=== PATIENT | female | born 1980 | race Caucasian/White ===

== ENCOUNTER 2019-08-14 03:30 | Inpatient (IN) | payer OTHER ==
[2019-08-14] MEDS: DEXTROSE 5%-LACTATED RINGERS 1,000 ML IV SCH ×3 (04:10→20:11)
[2019-08-14 04:46] VITALS: BMI 34.2
[2019-08-14] MEDS ORDERED: OXYTOCIN 30 UNITS in 0.9% NS 30 UNIT/500 ML INFUS.BAG IVPB ONE (11:02)
--- NOTE | 2019-08-14 11:05 | HP ---
Past Medical History - Admission History of Present Illness: 38 yo @ 39 6/7 wks by first trimester ultrasound, EDC 08/15/2019 complicated by: 1. Prior CD - desiring TOLAC Counseled in office regarding risks/benefits 2. H/o R dermoid cyst, s/p ovarian cystectomy 3. AMA - reassuring cell-free DNA reassuring testing Patient presents with chief complaint of leakage of clear fluid at 0200. She reports contractions began at 0300. She reports movement, denies vaginal bleeding. History Source: Patient Limitations to Obtaining History: No Limitations - Past Medical History Cardiovascular: No: HTN Pulmonary: No: Asthma Gastrointestinal: No: GERD ...: 3 ...Para: 1 ...Term: 1 ...: 0 ...Spon : 1 ...Induced : 0 ...Multiple Gestation: 0 ...LMP: 11/02/18 ... Weeks Gestation by Dates: 39.6 ...EDC by Dates: 08/15/19 Heme/Onc: No: Anemia - Past Surgical History Past Surgical History: Yes: Hx Myomectomy: No Hx Transabdominal Cerclage: No Additional Surgical History: ovarian cystectomy - Smoking History Smoking history: Never smoked Have you smoked in the past 12 months: No - Alcohol/Substance Use Hx Alcohol Use: No History of Substance Use: reports: None - Social History History of Recent Travel: No Home Medications - Allergies Allergies/Adverse Reactions: Allergies Allergy/AdvReac Type Severity Reaction Status Date / Time No Known Allergies Allergy Verified 08/14/19 04:22 - Home Medications Home Medications: Ambulatory Orders Vit No.130/Iron/Folic [ Vitamins] 1 each PO DAILY 05/11/16 Family Medical History Family History: Denies Review of Systems - Review of Systems Constitutional: reports: No Symptoms Respiratory: reports: No Symptoms Gastrointestinal: reports: No Symptoms Genitourinary: reports: No Symptoms Musculoskeletal: reports: No Symptoms Neurological: reports: No Symptoms Psychiatric: reports: No Symptoms Physical Exam - Maternity Vital Signs: Vital Signs Temperature 98.8 F 08/14/19 10:00 Pulse Rate 80 08/14/19 10:00 Respiratory Rate 20 08/14/19 10:00 Blood Pressure 135/75 08/14/19 10:00 O2 Sat by Pulse Oximetry (%) Constitutional: Yes: Well Nourished, No Distress, Calm Cardiovascular: Yes: Regular Rate and Rhythm Lungs: Clear to auscultation - Abdominal Exam/OB Number of Fetuses: Single Presentation: Vertex Contractions: Yes Regularity: Regular Intensity: Moderate Heart Rate (range): 140 Category: I Accelerations: Non-Uniform Decelerations: None - Vaginal Exam/OB Vaginal Bleediing: No Speculum Exam: No Dilatation (cm): 3 Effacement (%): 80 Amniotic Membrane Status: Ruptured Presentation: Vertex/Position Station: -1 - Physical Exam Psychiatric: Yes: Alert, Oriented - Labs Lab Results: PNL: A positive, antibody negative RPR NR; HIV neg; Varicella Immune; HBs Ag neg ; HCV neg; GCT WNL; [id number] WNL; GBS neg Hemorrhage Risk Assessment - Risk Factors Medium Risk Factors: Yes: Prior , uterine surgery,or multiple laparotomies High Risk Factors: Yes: None Risk Score: 1 Risk Level: Medium Risk Assessment/Plan 38 yo @ 39 6/7 wks, PROM 1. Admit to L&D 2. Routine labs reviewed 3. Consents reviewed and signed. Reviewed risks of Trial of Labor after Delivery, including but not limited to: - Risk of failed trial of labor resulting in a repeat delivery in approximately 20-40% of patients who attempt - Risk of rupture of uterus resulting in emergency delivery (0.2 - 1.5 % risk) - Risk of , neurologic compromise - Rare risk of maternal 4. GBS negative 5. Category I FHT 6. Forebag noted, AROM performed Will monitor ctx and start pitocin if needed 7. Will proceed with expectant management
--- NOTE | 2019-08-14 11:11 | PN ---
Ante-Partal Exam - Subjective Subjective: Attending to this pt for coverage of attempted TOLAC. Pt seen and examined, chart reviewed. Pt is a 38yo P1 with prior LT C/S at 37wks for breech, admitted in spontaneous labor and SROM. The pt was previously counseled re: risks, benefits, altern of TOLAC/ and we had this discussion again. The pt wants TOLAC. She feels mild irregular contractions and leaking clear fluid. Vital Signs: Vital Signs Temperature 98.8 F 08/14/19 10:00 Pulse Rate 80 08/14/19 10:00 Respiratory Rate 20 08/14/19 10:00 Blood Pressure 135/75 08/14/19 10:00 O2 Sat by Pulse Oximetry (%) Bleeding: No Headache: No Visual changes: No Right upper quadrant pain: No Pain (scale 1-10): 4 - Contractions Contractions: Yes Regularity: Irregular (q8-10min) Intensity: Mild/Mod Monitor Mode: External - Exam during Labor Heart Rate: 130 Variability: Moderate Heart Rate Location: Midline Category: I Monitor Accelerations: Present Monitor Decelerations: None Exam: Vaginal Dilatation (cm): 3 Effacement (%): 80 Amniotic Membrane Status: Leaking Amniotic Fluid: Clear Presentation: Vertex Station: -2 Remarks: Adequate gynecoid pelvimetry. EFW ~ 6lb 10oz. by Ramone maneuvers. - Intrapartum Hemorrhage Risk Medium Risk Factors: None High Risk Factors: None Risk Score: 0 Risk Level: Low Risk - Assessment/Plan Assessment/Plan: 38yo P1 attempting TOLAC/. The fetus has a Category I tracing and does not need intervention. Gynecoid pelvimetry. The pt has no contraindications to . Labor is in latent phase with irregular ctx's. We discussed mgt plan with the pt at length, including observation w/expectant mgt to await labor progress , augmenting ctx's with pitocin, repeat C/S. The pt prefers to augment contractions with pitocin. Reviewed risks of Trial of Labor after section, including but not limited to: - Risks of failed trial of labor resulting in a repeat delivery in approximately 20-40% of patients who are attempting - Risks of uterine rupture and/or uterine scar dehiscence resulting in emergency delivery (0.2 - 1.5% risk) - Risks of hemorrhage, DIC, hysterectomy, blood transfusion, injury to surrounding organs, need for additional future surgery, etc. - Potential increase in risks of complications if failed - Risks of severe neurologic compromise/injury, or - Rare risks of maternal Pt verbalized understanding and requested to proceed with pitocin.
[2019-08-14] MEDS ORDERED: OXYTOCIN 30 UNITS in 0.9% NS 30 UNIT/500 ML INFUS.BAG IVPB SCH (11:30)
[2019-08-14] MEDS ORDERED: FENTANYL/BUPIVACAINE/NS/PF - PCEA - 50 ML DISP.SYRIN EP ONE (12:54)
[2019-08-14] MEDS ORDERED: NALOXONE HCL 0.4 MG/ML VIAL IVPUSH PRN (13:53)
[2019-08-14] MEDS ORDERED: FENTANYL/BUPIVACAINE/NS/PF - PCEA - 50 ML DISP.SYRIN EP SCH (14:00)
--- NOTE | 2019-08-14 16:01 | PN ---
Progress Note (short form) - Note Progress Note: cx 6 cm , 80 vx 0 station, variable and early decelration , head not midline , will revaluate in 1/2 hr if no further dilation or if decel are recurrent advised c/s . pitocin stopped , LT side ,o2
[2019-08-14] MEDS ORDERED: OXYTOCIN 20 UNITS in 0.9% NS 20 UNIT/1,000 ML INFUS.BAG IV ONE (16:11)
[2019-08-14] MEDS ORDERED: LIDO 2%/EPI 1:200000 PRESRVFRE (20 ML SDVIAL) ONE (16:12)
[2019-08-14] MEDS ORDERED: OXYTOCIN 10 UNITS/ML VIAL ONE (16:47)
[2019-08-14] MEDS ORDERED: morphine SULFATE/PF 0.5 MG/ML (2cc Syringe - QUVA) ONE ×2 (16:51)
[2019-08-14] MEDS ORDERED: oxyCODONE HCL 5 MG TABLET PO PRN (17:47)
[2019-08-14] MEDS ORDERED: BENZOCAINE 20% 57 GM BOTTLE TP PRN (17:47)
[2019-08-14] MEDS ORDERED: BENZOCAINE 28 GM HEMORRHOIDAL OINTMENT PR PRN (17:47)
[2019-08-14] MEDS ORDERED: METHYLERGONOVINE MALEATE 0.2 MG/1 ML AMP IM PRN (17:47)
[2019-08-14] MEDS ORDERED: diphenhydrAMINE HCL 25 MG CAPSULE (FP) PO PRN (17:47)
[2019-08-14] MEDS ORDERED: WITCH HAZEL 50% (TUCKS) 40 PAD/JAR PAD TP PRN (17:47)
--- NOTE | 2019-08-14 17:49 | OP ---
Operative Note - Note: Operative Date: 08/14/19
[2019-08-14] MEDS ORDERED: CEFAZOLIN 1 GM in DEXTROSE 5%-WATER - 50 ML IVPB SCH (18:00)
[2019-08-14] MEDS ORDERED: OXYTOCIN 20 UNITS in 0.9% NS 20 UNIT/1,000 ML INFUS.BAG IV SCH (18:00)
[2019-08-14] MEDS: IBUPROFEN 800 MG/8 ML IJ IVPB PRN (21:11)
[2019-08-15] MEDS: CEFAZOLIN 1 GM/D5W 1 GM/50 ML BAG IVPB SCH ×2 (00:20→08:24)
[2019-08-15] MEDS: DEXTROSE 5%-LACTATED RINGERS 1,000 ML IV SCH (02:00)
[2019-08-15 08:59] LABS: POC NITRAZINE POS
--- NOTE | 2019-08-15 09:02 | PN ---
Post Progress Note - Subjective Subjective: Patient without acute complaints. Reports tolerating oral intake without nausea or vomiting. Denies fevers or chills. Pain well controlled with oral pain medication. without difficulty. Positive flatus Post Day: 1 Type of Delivery: Repeat C/S Vital Signs: Vital Signs Temperature 98.2 F 08/15/19 06:00 Pulse Rate 85 08/15/19 06:00 Respiratory Rate 18 08/15/19 08:00 Blood Pressure 109/66 08/15/19 06:00 O2 Sat by Pulse Oximetry (%) 97 08/14/19 18:30 Breast Exam: Yes: Soft Uterus: Yes: Fundus Firm, Fundus @ umbilicus Incision: Yes: Dressing dry and intact Abdomen/GI: Yes: Abdomen soft, Tolerating PO Lochia: Yes: Rubra Lochia, amount: Small Extremities: Yes: Calves non-tender Activity: Other (in bed) Assessment/Plan POD # 1 s/p Repeat c/section VSS, Afebrile Doing well Rh pos no need for Rhogam D/C li D/C IVF CBC to be drawn, will follow Encourage ambulation
[2019-08-15] MEDS: IBUPROFEN 800 MG/8 ML IJ IVPB PRN (10:23)
[2019-08-15 10:27] LABS: BASO % 0.4 % (0-2.0); EOS % 0.3 % (0-4.5); HEMATOCRIT 34.8 % (32.4-45.2); HEMOGLOBIN 11.9 GM/dL (10.7-15.3); LYMPH % 12.3 % (8-40); MCH 32.5 pg (25.7-33.7); MCHC 34.1 g/dl (32.0-36.0); MEAN CELL VOLUME 95.4 fl (80-96); MONO % 5.8 % (3.8-10.2); NEUT % 81.2 % (42.8-82.8); PLATELET COUNT 182 K/MM3 (134-434); RBC 3.65 M/mm3 (3.60-5.2); WHITE BLOOD COUNT 13.7 K/mm3 (4.0-10.0)
--- NOTE | 2019-08-15 10:37 | PN ---
Progress Note (short form) - Note Progress Note: Anesthesia POD#1 S/P under spinal A VSS,no N/V,legs strong,pain is bearable. Rose Du MD.
[2019-08-15] MEDS ORDERED: BISACODYL 10 MG SUPP.RECT PR PRN (17:47)
[2019-08-15] MEDS: SIMETHICONE 80 MG TAB.CHEW (FP) PO PRN (19:57)
[2019-08-15] MEDS: oxyCODONE HCL 5 MG TABLET PO PRN (19:57)
[2019-08-15] MEDS: IBUPROFEN 600 MG TABLET (FP) PO PRN (19:58)
[2019-08-16] MEDS: oxyCODONE HCL 5 MG TABLET PO PRN ×5 (04:11→20:46)
[2019-08-16] MEDS: SIMETHICONE 80 MG TAB.CHEW (FP) PO PRN ×5 (04:11→20:45)
[2019-08-16] MEDS: IBUPROFEN 600 MG TABLET (FP) PO PRN ×5 (04:12→20:45)
--- NOTE | 2019-08-16 10:44 | PN ---
Progress Note (short form) - Note Progress Note: pod 2 s/p repeat c/s , ambulating, passing gas , no excess vaginal bleeding, , CBC, BMP 08/15/19 10:08 Last Vital Signs Temp Pulse Resp BP Pulse Ox 98.5 F 108 H 18 124/75 97 08/15/19 22:00 08/15/19 22:00 08/15/19 22:00 08/15/19 22:00 08/14/19 18:30 abdomen soft, no distension, no cva . incision dry, clean no calf tenderness lochia mild plan ambulate pain management cbc in am advance diet
[2019-08-16] MEDS: DEXTROSE 5%-LACTATED RINGERS 1,000 ML IV SCH (17:59)
[2019-08-16] MEDS: SENNOSIDES/DOCUSATE COMBO (SENNA PLUS) TABLET (UD) PO PRN (20:46)
[2019-08-17] MEDS: oxyCODONE HCL 5 MG TABLET PO PRN ×3 (00:37→08:31)
[2019-08-17] MEDS: IBUPROFEN 600 MG TABLET (FP) PO PRN ×6 (00:37→23:37)
[2019-08-17] MEDS: SIMETHICONE 80 MG TAB.CHEW (FP) PO PRN ×6 (01:25→23:37)
--- NOTE | 2019-08-17 07:38 | PN ---
Post Progress Note - Subjective Subjective: Patient without acute complaints. Reports tolerating oral intake without nausea or vomiting. Ambulating without dizziness. Denies fevers or chills. Pain well controlled with oral pain medication. without difficulty. Passing flatus. Post Day: 3 Type of Delivery: Repeat C/S Vital Signs: Vital Signs Temperature 98.7 F 08/16/19 21:00 Pulse Rate 96 H 08/16/19 21:00 Respiratory Rate 20 08/16/19 21:00 Blood Pressure 136/88 08/16/19 21:00 O2 Sat by Pulse Oximetry (%) 97 08/14/19 18:30 Breast Exam: Yes: Soft Uterus: Yes: Fundus Firm, Fundus below umbilicus Incision: Yes: Sutures intact. No: Redness, Oozing Abdomen/GI: Yes: Abdomen soft, Abdominal Distention (mild soft), Passing flatus , Tolerating PO. No: Tender Lochia: Yes: Rubra Lochia, amount: Moderate Extremities: Yes: Calves non-tender, Edema (trace) Activity: Ambulating - Labs Labs: CBC WBC 13.7 K/mm3 (4.0-10.0) H 08/15/19 10:08 RBC 3.65 M/mm3 (3.60-5.2) 08/15/19 10:08 Hgb 11.9 GM/dL (10.7-15.3) 08/15/19 10:08 Hct 34.8 % (32.4-45.2) 08/15/19 10:08 MCV 95.4 fl (80-96) 08/15/19 10:08 MCH 32.5 pg (25.7-33.7) 08/15/19 10:08 MCHC 34.1 g/dl (32.0-36.0) 08/15/19 10:08 RDW 14.0 % (11.6-15.6) 08/15/19 10:08 Plt Count 182 K/MM3 (134-434) 08/15/19 10:08 MPV 9.0 fl (7.5-11.1) 08/15/19 10:08 Absolute Neuts (auto) 11.1 K/mm3 (1.5-8.0) H 08/15/19 10:08 Neutrophils % 81.2 % (42.8-82.8) 08/15/19 10:08 Lymphocytes % 12.3 % (8-40) D 08/15/19 10:08 Monocytes % 5.8 % (3.8-10.2) 08/15/19 10:08 Eosinophils % 0.3 % (0-4.5) 08/15/19 10:08 Basophils % 0.4 % (0-2.0) 08/15/19 10:08 Nucleated RBC % 0 % (0-0) 08/15/19 10:08 Assessment/Plan 38 yo POD # 3 s/p R CD, afebrile, vital signs stable, doing well 1. Continue routine postoperative care. 2. Encourage ambulation and incentive spirometer use 3. Continue oral pain medication 4. Anticipate discharge home postoperative day #4
[2019-08-17 07:51] LABS: BASO % 0.5 % (0-2.0); EOS % 1.9 % (0-4.5); HEMATOCRIT 33.1 % (32.4-45.2); HEMOGLOBIN 11.4 GM/dL (10.7-15.3); LYMPH % 22.1 % (8-40); MCH 32.6 pg (25.7-33.7); MCHC 34.4 g/dl (32.0-36.0); MEAN CELL VOLUME 94.9 fl (80-96); MEAN PLT VOLUME 8.8 fl (7.5-11.1); MONO % 4.2 % (3.8-10.2); NEUT % 71.3 % (42.8-82.8); PLATELET COUNT 213 K/MM3 (134-434); RBC 3.49 M/mm3 (3.60-5.2); RDW 14.1 % (11.6-15.6); WHITE BLOOD COUNT 12.4 K/mm3 (4.0-10.0)
--- NOTE | 2019-08-17 08:14 | DS ---
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 Present: Yes Name: Maddie Jeffery Infant Gender: Female Weight: 6 lb 14 oz Position: Left, OP Total Hours ROM (Hrs/Mins): 14 hours and 47 mins - 1 Minute Total Score: 9 5 Minutes Total Score: 9 - Clyde Feeding Plan Initial Plan: Elected not to breastfeed exclusively throughout hospitalization Discharge Summary Problems reviewed: Yes Reason For Visit: ADMIT-C/S Hospital Course: Patient was admitted, SROM desired TOLAC Risks/benefits discussed She progressed to 8 cm, however had NRFHT underwent repeat CD POD # 1 patient ambulated, voiding, passing gas, tolerating oral intake and with adequate pain control. Noted to have mild asymptomatic anemia She fulfilled all criteria for discharge POD #4 Condition: Good - Instructions Diet, Activity, Other Instructions: Return to office in 1 week for incision check Physical activity Resume your normal everyday activity as tolerated no heavy lifting or exercise until seen by your surgeon. You may walk unlimited [place] of and climb stairs. You may resume driving the car when you feel safe and comfortable behind the wheel. No sexual activity as instructed. Wound care If you have a bandage, leave it on, and keep dry for 48-72 hours. After that time discard the outer bandage. If they are tapes on the skin under the out of bandage leave them in place. They will peel off in the next 7 to 10 days. Do Not Peel them off. You may shower the day after surgery. If there are tapes present on the skin, you may shower over them. Diet There are no dietary restrictions. Eat healthy, high-fiber foods. Drink 6 to 8 glasses of liquid each day. This will assist in keeping your bowels are regular. Pain management You may take Tylenol or acetaminophen or Ibuprofen (for example, Motrin, Advil etc.) from my pain prescription medication is ordered should be taken as prescribed for moderate to severe pain. Call MD for any of the following: Severe pain not relieved by medication Fever of 101 or higher Excessive bleeding or drainage on dressing Inability to urinate Disposition: HOME - Home Medications Comprehensive Discharge Medication List: Ambulatory Orders Vit No.130/Iron/Folic [ Vitamins] 1 each PO DAILY 05/11/16
[2019-08-17] MEDS: SENNOSIDES/DOCUSATE COMBO (SENNA PLUS) TABLET (UD) PO PRN (19:49)
[2019-08-18] MEDS: IBUPROFEN 600 MG TABLET (FP) PO PRN ×2 (06:49→10:49)
[2019-08-18] MEDS: SIMETHICONE 80 MG TAB.CHEW (FP) PO PRN ×2 (06:50→10:49)
--- NOTE | 2019-08-18 07:05 | PN ---
Progress Note (short form) - Note Progress Note: pod 4 s/p c/s, doing well, no c/o CBC, BMP 08/17/19 07:30 Last Vital Signs Temp Pulse Resp BP Pulse Ox 98.3 F 103 H 20 140/93 97 08/17/19 22:00 08/17/19 22:00 08/17/19 22:00 08/17/19 22:00 08/14/19 18:30 abdomen soft, no distension, no cva . BS are present incision dry, clean healing well, no calf tenderness plan d/c home, follow up office 1 week
[2019-08-18 18:02] VITALS: BP 126/82; PULSE 97; TEMP 98
--- NOTE | 2019-08-22 16:31 | PATH ---
Surgical Pathology Report Patient Name: RADHA BIRCH Med. Rec. 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 Specimen(s) Received PLACENTA Clinical History , 39.6 weeks failed , nonreassuring heart rate, SPAB x1, history of depression, advanced maternal age Final Diagnosis PLACENTA, SECTION: 380 G THIRD TRIMESTER PLACENTA WITH TRIVASCULAR UMBILICAL CORD AND UNREMARKABLE PLACENTAL MEMBRANES. Electronically Signed Smui Vick M.D. Gross Description The specimen is received fresh labeled placenta and is a 380 gram, 17.0 x 12.5 x 2.6 cm. placenta with attached membranes and umbilical cord. The attached membranes are sood, translucent with focal opacities and insert marginally. The umbilical cord measures 18.5 cm. in length and averages 1.0 cm. in diameter. The cord inserts eccentrically, 3 cm. to the nearest margin. No true knots or strictures are identified. Cut surface of the umbilical cord reveals 3 vessels. The surface is martinez blue with minimal fibrin deposition and appropriate caliber vessels. The maternal surface is red-brown with focal defects. Sectioning reveals red-brown, spongy parenchyma. No lesions are identified. [employer] sections are submitted in three cassettes as follows: 1- membrane rolls and umbilical cord; 2-3- full thickness sections of placenta. /08/21/2019 [facility]08/21/2019
--- NOTE | 2019-08-24 15:18 | OP ---
DATE OF OPERATION: 08/14/2019 PREOPERATIVE DIAGNOSES: , 40 weeks. Previous section. Request of repeat section. POSTOPERATIVE DIAGNOSES: , 40 weeks. Previous section. Request of repeat section. PROCEDURE: Repeat low-segment, transverse section. SURGEON: Rambo Miller MD SMOKE TESTER: Lenin Snow MD ANESTHESIA: Spinal. ESTIMATED BLOOD LOSS: 500 mL. OPERATION: The patient was taken to the operating room and had adequate spinal anesthesia. Abdomen and perineum were prepped and draped. Pfannenstiel abdominal skin incision was made. Abdominal wall was cut [id number]. Anterior peritoneum was exposed and incised. Upon entering the abdominal cavity, low uterine segment was identified and uterovesical fold of peritoneum established. Bladder was pushed down. Then, with the lower blade of the Rd retractor in the pelvis, a low-transverse uterine incision was made. Incision extended laterally. Amniotic sac was entered. Clear fluid identified. Nasopharynx was suctioned. A live baby was delivered, Apgars 9 and 9, without any difficulty. Placenta was delivered manually. Uterine cavity was cleaned of all remaining tissue. Uterine incision was closed in 2 layers, first layer with 0 Biosyn continuous suture, the second layer with 0 Biosyn imbricating the first layer. Bladder flap was closed with 0 Biosyn continuous suture. Both tubes and ovaries were checked and were normal. No active bleeding was seen. All the lap and sponge and instrument counts were correct. Then, peritoneum was closed with 0 Biosyn continuous suture. Muscle was brought together with interrupted suture of 0 Biosyn. Fascia was closed with 0 Biosyn continuous suture, subcutaneous fat with interrupted suture of 0 Biosyn, and the skin was closed with 3-0 Biosyn subcuticular continuous suture. Patient tolerated procedure well. Left the OR in good condition. Any [id number]
== END 2019-08-18 15:05 | disposition home or self-care (01) | DRG 788 ==
LOC: JLDR 03:30 → J3W 19:32
PROVIDERS: ADMIT Obstetrics & Gynecology; ATTEND Obstetrics & Gynecology
PROC: 10D00Z1 Extraction of Products of Conception, Low, Open Approach (ICD-10-PCS; principal; 2019-08-14)
DX: O48.0 Post-term pregnancy (principal); O34.219 Maternal care for unspecified type scar from previous cesarean delivery; Z3A.40 40 weeks gestation of pregnancy; Z37.0 Single live birth
CPT/HCPCS: 36415; 36600; 82803; 83986-QW; 85025; 88307-TC